=== PATIENT | male | born 1975 | race Caucasian/White ===

== ENCOUNTER 2016-10-03 12:47 | Emergency (ER) | payer OTHER ==
[~2016-10-03] VITALS: Ht 195.6 cm; Wt 100.7 kg
[2016-10-03] MEDS ORDERED: NYQU1LIQ PO (12:58)
[2016-10-03] MEDS ORDERED: MULTCAP11 PO (12:58)
[2016-10-03] MEDS ORDERED: MUCI600T34 PO (12:58)
[2016-10-03] MEDS ORDERED: NS 1,000 ML IV ONE (13:45)
[2016-10-03] MEDS ORDERED: methylPREDNISolone INJ 125 MG/2 ML VIAL (J2930) IV ONE (13:45)
[2016-10-03] MEDS ORDERED: ONDANSETRON 4MG/2ML VIAL (J2405) IV ONE (13:45)
[2016-10-03 14:13] LABS: BASO % 0.1 % (0.0-1.0); EOS # 0.1 K/mm3 (0.0-0.50); EOS % 1.2 % (0.0-3.0); LARGE UNSTAINED CELL # 0.1 K/mm3 (0.0-0.4); LARGE UNSTAINED CELL % 0.8 % (0.0-4.0); LYMPH # 0.8 K/mm3 (1.5-4.5); LYMPH % 7.5 % (24.0-44.0); MEAN CORPUSCULAR HEMOGLOBIN 30.3 pg (27.0-33.0); MEAN CORPUSCULAR HGB CONC 33.2 g/dl (32.0-36.5); MEAN CORPUSCULAR VOLUME 91.3 fl (80.0-96.0); MONO # 0.4 K/mm3 (0.0-0.8); MONO % 3.6 % (0.0-5.0); NEUTROPHILS # 8.9 K/mm3 (1.8-7.7); NEUTROPHILS % 86.8 % (36.0-66.0); PLATELET COUNT, AUTOMATED 224 k/mm3 (150-450); RED CELL DISTRIBUTION WIDTH 12.9 % (11.5-14.5); WHITE BLOOD COUNT 10.2 K/mm3 (4.0-10.0)
--- NOTE | 2016-10-03 14:16 | REP ---
CHEST, TWO VIEWS: No comparison. PA and lateral views of the chest are performed. There is no acute infiltrate or pulmonary edema. A 2 cm nodular opacity is seen in each upper lobe. The lungs are otherwise clear. The heart is normal in size. The mediastinal silhouette is unremarkable. The visualized osseous structures appear intact. IMPRESSION: Nodular opacity in each upper lobe. Recommend CT of the chest to further evaluate. Signed by Niranjan Desai MD 10/03/2016 03:43 P
[2016-10-03 14:26] LABS: ANION GAP 5 MEQ/L (8-16); BLOOD UREA NITROGEN 18 MG/DL (7-18); CALCIUM LEVEL 8.5 MG/DL (8.5-10.1); CARBON DIOXIDE LEVEL 29 MEQ/L (21-32); CHLORIDE LEVEL 109 MEQ/L (98-107); CREATININE FOR GFR 1.29 MG/DL (0.70-1.30); GLOMERULAR FILTRATION RATE > 60.0 (>60); GLUCOSE, FASTING 91 MG/DL (70-105); POTASSIUM SERUM 4.6 MEQ/L (3.5-5.1); SODIUM LEVEL 143 MEQ/L (136-145)
[2016-10-03] MEDS ORDERED: MEDR4PAK PO (15:27)
[2016-10-03] MEDS ORDERED: ZOFR4TAB3 PO ×2 (15:27→17:09)
[2016-10-03] MEDS ORDERED: ISOVUE-370 76% 100ML VIAL (Q9967) As Ordered ONE (15:35)
--- NOTE | 2016-10-03 16:22 | REP ---
Clinical: Evaluate upper lobe density. Comparison: Chest x-ray dated 10/03/2016.. Findings: The bilateral lung henderson are well-aerated and clear. No pulmonary parenchymal consolidation, nodule or mass lesion appreciated. No pleural effusion or reaction. No pneumothorax. Mediastinum demonstrates normal thoracic aorta and heart/pericardium. No axillary hilar or mediastinal adenopathy. Surrounding musculoskeletal structures are normal. Thyroid gland is normal. Upper abdomen demonstrates normal bilateral adrenal glands. Impression: Normal contrast enhanced chest CT. No upper lobe nodular densities identified. The speech and tenth to to positioning to the contusion in the to the fundus there is a over the choose. The a some of this area nodule cannot H air was seen. Hilar aorta at bedtime as the region Signed by Jose De Jesus Rios MD 10/03/2016 04:13 P
[2016-10-03 18:06] VITALS: BP 105/54
== END 2016-10-03 18:08 | disposition home or self-care (01) ==
LOC: EDBD 12:47 → M ED 15:13
DX: L50.9 Urticaria, unspecified (principal); B34.9 Viral infection, unspecified; Z88.0 Allergy status to penicillin; Z91.030 Bee allergy status
CPT/HCPCS: 71020; 71260; 80048; 85025; 96360; 96361; 99283; J2405; J2930; Q9967

== ENCOUNTER 2016-10-05 23:17 | Emergency (ER) | payer OTHER ==
[~2016-10-05] VITALS: Ht 195.6 cm; Wt 100.7 kg
[~2016-10-05 23:17] MED LIST: MEDR4PAK PO; MUCI600T34 PO; MULTCAP11 PO; NYQU1LIQ PO; ZOFR4TAB3 PO
[2016-10-05] MEDS ORDERED: BENA25CA3 PO (23:31)
[2016-10-06] MEDS ORDERED: diphenhydrAMINE INJ 50MG/ML VIAL (J1200) IV STA (01:44)
[2016-10-06] MEDS ORDERED: methylPREDNISolone INJ 125 MG/2 ML VIAL (J2930) IV ONE (01:45)
[2016-10-06] MEDS ORDERED: NS 1,000 ML IV ONE (01:45)
[2016-10-06] MEDS ORDERED: FAMOTIDINE INJ 20MG/2ML VIAL (S0028) IVP ONE (01:45)
[2016-10-06 03:59] VITALS: BP 116/65
[2016-10-06] MEDS ORDERED: FAMO1TAB25 PO (04:04)
[2016-10-06] MEDS ORDERED: PRED20TA PO (04:04)
== END 2016-10-06 04:14 | disposition home or self-care (01) ==
LOC: M ED 10-06 01:43
DX: L50.0 Allergic urticaria (principal); Z79.899 Other long term (current) drug therapy; Z91.030 Bee allergy status; Z88.0 Allergy status to penicillin
CPT/HCPCS: 96361; 96374; 96375; 99282; J1200; J2930

== ENCOUNTER → 2017-09-11 | Outpatient (CLI) | payer OTHER ==
[~2017-09-11] MED LIST changes: +ISOVUE-370 76% 100ML VIAL (Q9967) As Ordered; -MEDR4PAK PO; -MUCI600T34 PO; -MULTCAP11 PO; -NYQU1LIQ PO; -ZOFR4TAB3 PO
== END ==
LOC: M RAD 14:54
DX: R59.9 Enlarged lymph nodes, unspecified (principal)